=== PATIENT | male | born 1950 | race African-American/Black ===

== ENCOUNTER 2018-03-20 15:59 | Emergency (ER) | payer MEDICARE, MEDICAID ==
[~2018-03-20] VITALS: Ht 188 cm; Wt 67.9 kg
[~2018-03-20 15:59] MED LIST: CARB-32 PO; GABA-529 PO; OMEP20CA10 PO; SUCR1TAB30 MT; VORI50TA PO
[2018-03-20 17:23] VITALS: BP 140/76
== END 2018-03-20 17:51 | disposition home or self-care (01) ==
LOC: ER 17:35
DX: G62.9 Polyneuropathy, unspecified (principal); F32.9 Major depressive disorder, single episode, unspecified; K21.9 Gastro-esophageal reflux disease without esophagitis
CPT/HCPCS: 99283

== ENCOUNTER 2018-03-26 11:05 | Emergency (ER) | payer MEDICARE, MEDICAID ==
[~2018-03-26] VITALS: Ht 188 cm; Wt 67.7 kg
[2018-03-26 11:56] LABS: BASOPHILS % 0.5 % (0.0-2.0); EOSINOPHILS % 0.8 % (0.0-5.0); HEMATOCRIT. 42.1 % (42.0-52.0); HEMOGLOBIN. 13.9 g/dL (14.0-18.0); LYMPHOCYTES % 23.6 % (20.0-50.0); MEAN CORPUSCULAR HEMOGLOBIN 30.6 pg (28.0-32.0); MEAN CORPUSCULAR VOLUME 92.4 fL (80.0-94.0); MEAN PLATELET VOLUME 7.9 fl (7.4-10.4); MONOCYTES % 7.7 % (2.0-8.0); NEUTROPHILS % 67.4 % (40.0-76.0); PLATELET 130 x1000/uL (130-400); RED BLOOD CELL COUNT 4.55 mill/uL (4.7-6.1); RED CELL DISTRIBUTION WIDTH 14.3 % (11.6-14.6)
[2018-03-26 12:01] LABS: CHLORIDE 105 mEq/L (98-107)
[2018-03-26 12:06] LABS: D-DIMER 0.51 mg/L FEU (<0.50); INR 1.1; PARTIAL THROMBOPLASTIN TIME 25.2 sec (23.4-31.0); PROTHROMBIN TIME 11.1 sec (9.4-11.6)
[2018-03-26 17:45] VITALS: BP 130/76
== END 2018-03-26 17:54 | disposition home or self-care (01) ==
LOC: ER 11:26
DX: M79.1 Myalgia (principal); K21.9 Gastro-esophageal reflux disease without esophagitis; F32.9 Major depressive disorder, single episode, unspecified; R79.9 Abnormal finding of blood chemistry, unspecified; R79.1 Abnormal coagulation profile
CPT/HCPCS: 36415; 71045; 80053; 83690; 84484; 85025; 85379; 85610; 85730; 93005; 93970; 99285